=== PATIENT | female | born 1995 | race Caucasian/White ===

== ENCOUNTER → 2020-07-26 09:58 | Outpatient (CLI) | payer OTHER, SELFPAY ==
--- NOTE | ~2020-07-26 | US_ITS ---
EXAMINATION: US transvaginal EXAM DATE: 07/26/2020 10:19 INDICATION: Right lower quadrant pain. PCOS. TECHNIQUE: Pelvic transvaginal sonogram was performed. There are multiple grayscale and Doppler imag es available for interpretation. There is no prior study for comparison. FINDINGS: Uterus measures 7.4 x 2.9 x 3.5 cm, and is morphologically normal. Endometrial stripe jeana sures 7 mm, within normal limits. There is small free pelvic fluid. Right adnexa: The ovary measures 4.2 x 2.3 x 2.3 cm and is morphologically normal, with the dominant follicle measuring 1.8 cm. Ovarian vascular flow confirmed. Left adnexa: The ovary measures 3.0 x 2.4 x 2.0 cm and is morphologically normal. Ovarian vascular fl ow confirmed. IMPRESSION: 1. Unremarkable pelvic ultrasound exam. Reviewed, dictated and finalized at location A.
== END ==
PROVIDERS: Visit Provider Nurse Practitioner
DX: E28.2 Polycystic ovarian syndrome (principal); R10.2 Pelvic and perineal pain
CPT/HCPCS: 76830

== ENCOUNTER 2022-01-14 23:24 | Emergency (ER) | payer OTHER, SELFPAY ==
--- NOTE | ~2022-01-14 | XR_ITS ---
EXAMINATION: XR chest 1V portable DATE: 01/14/2022 23:55 INDICATION: Dyspnea and nausea. TECHNIQUE: frontal view of the chest was obtained. COMPARISON: None FINDINGS: The lungs are clear with no focal airspace opacities, pulmonary edema, pleural effusion or pneumothor ax. The cardiomediastinal silhouette is normal. IMPRESSION: 1. No acute cardiopulmonary disease. Reviewed, dictated and finalized at location A. CENTER MANAGER
--- NOTE | 2022-01-14 23:29 | ECG_ITS ---
Measurements Intervals [place] Rate: 87 P: 46 MA: 132 QRS: -4 QRSD: 106 T: 35 QT: 330 QTc: 398 Interpretive Statements SINUS RHYTHM DELAYED PRECORDIAL R/S TRANSITION BASELINE ARTIFACT- II, III, AVR, AVL, AVF, V3-V6 BORDERLINE ECG Electronically Signed On 01-15-2022 7:10:17 [employer] by Luis Felipe Stacy D.O.
[2022-01-14 23:37] VITALS: BP 161/98; PULSE 92; RESP 22; TEMP 36.7; O2SAT 97
--- NOTE | 2022-01-14 23:39 | ED.GENADULT ---
HPI - General Adult General Chief complaint: Recheck/Abnormal Lab/Rx Stated complaint: HTN, 4 DAYS POST Source: RN notes reviewed History of Present Illness HPI narrative: Patient presents emergency department via [facility] for hypertension the patient just gave 4 days ago at [facility] by Dr. Balderas on January 10. She had a at that time she states at that time she had preeclampsia and was on a magnesium drip following delivery she was switched and has been on nifedipine 30 mg daily which she took this morning states this evening she woke from a nap and felt hot and flushed she states she had a mild headache and mild vision changes she describes blurred vision that is now resolved she called EMS at that time and came to the ED for further evaluation she denies any chest pain shortness of breath abdominal pain nausea vomiting or any other symptoms Related Data Home Medications Medication Instructions Recorded Confirmed acetaminophen 500 mg PO PRN 01/14/22 ibuprofen 01/14/22 nifedipine PO 01/14/22 -wptg fum-folic ac-om3 01/14/22 Allergies Allergy/AdvReac Type Severity Reaction Status Date / Time No Known Allergies Allergy Verified 01/14/22 23:43 Review of Systems Review of Systems: Gen.: Denies fevers or chills Eyes: Reports blurred vision is now resolved ENT: Denies congestion Respiratory: Denies shortness of breath or cough CV: Denies chest pain or palpitations GI: Denies abdominal pain nausea, emesis or diarrhea ports recent delivery with Musculoskeletal: Denies back pain or muscle pain Neuro: Reports headache now resolved Skin: Denies rash Except as documented, all other systems reviewed and negative [facility] Past Medical History Medical History (Updated 01/15/22 @ 01:33 by Lamberto Hoffman DO) Preeclampsia Social History Social History (Updated 01/14/22 @ 23:43 by Lamberto Hoffman DO) Smoking status: Never smoker Exam Narrative: APPEARANCE: No acute distress, nontoxic, resting in bed EYES: EOMI, PERRL HEENT: Normocephalic, atraumatic, OMM RESPIRATORY: No respiratory distress Clear to auscultation bilaterally with no rhonchi wheezing or rales. CARDIOVASCULAR: Regular rate and rhythm without murmurs rubs or gallops. ABDOMINAL: Soft, nontender, nondistended, no rebound or guarding MUSCULOSKELETAl: Moves all extremities. No clubbing, cyanosis 2+ edema bilateral lower extremities NEURO: Awake and alert. Following commands, speech normal, no focal deficits SKIN:: Warm, dry. No rashes lesions or abrasions PSYCHIATRIC: Anxious in appearance Course Course Emergency Course: Patient has become more calm while in the ED I discussed with her possible anxiety medication but she is currently breast-feeding Called discussed with patient's [employer] Dr. Ramirez at [facility]. At this time reviewed vital signs and lab results feels the patient may be discharged home at this time. Request patient receive dose of Lasix prior to discharge Discussed with patient results of workup and diagnosis. Discussed need for follow-up with primary care, proper use of medication, and reasons to return to the emergency department. Patient understands and agrees to current treatment plan Vital Signs Vital signs: Vital Signs Temperature 98.0 F 01/14/22 23:37 Pulse Rate 92 01/14/22 23:37 Respiratory Rate 22 H 01/14/22 23:37 Blood Pressure 161/98 H 01/14/22 23:37 Pulse Oximetry 97 01/14/22 23:37 Temperature 98.0 F 01/14/22 23:37 Pulse Rate 86 01/15/22 01:25 Respiratory Rate 16 01/15/22 01:25 Blood Pressure 132/97 H 01/15/22 01:25 Pulse Oximetry 99 01/15/22 01:25 Medical Decision Making Vital Signs Vital Signs: Vital Signs Temperature 98.0 F 01/14/22 23:37 Pulse Rate 92 01/14/22 23:37 Respiratory Rate 22 H 01/14/22 23:37 Blood Pressure 161/98 H 01/14/22 23:37 Pulse Oximetry 97 01/14/22 23:37 Temperature
[2022-01-15 00:17] VITALS: BP 140/91; PULSE 88; RESP 19; O2SAT 98
[2022-01-15 00:21] LABS: Basophils Percent Auto 0.4 % (0.2-1.2); Eosinophils Absolute Auto 0.2 K/mm3 (0-0.3); Eosinophils Percent Auto 1.8 % (0-4.4); Hematocrit 27.1 % (37.0-47.0); Hemoglobin 8.6 g/dL (12.0-15.0); Immature Granulocyte Absolute 0.18 K/mm3 (0.00-0.031); Immature Granulocyte Percent A 1.9 % (0-0.5); Lymphocytes Absolute Auto 1.15 K/mm3 (0.9-3.2); Lymphocytes Percent Auto 12.3 % (18.3-44.2); Mean Corpuscular HGB Conc 31.7 g/dl (32-36); Mean Corpuscular Hemoglobin 29.3 pg (26-34); Mean Corpuscular Volume 92.2 fl (80-100); Mean Platelet Volume 9.8 fl (7.4-10.4); Monocytes Absolute Auto 0.6 K/mm3 (0.1-0.6); Monocytes Percent Auto 5.9 % (2.6-8.5); Neutrophils Absolute Auto 7.2 K/mm3 (1.3-6.7); Neutrophils Percent Auto 77.7 % (45.5-73.1); Platelet Count Result 230 k/mm3 (150-375); Red Blood Count 2.94 M/mm3 (4.2-5.4); Red Cell Distribution Width 13.6 % (11.5-14.5); White Blood Count 9.3 K/mm3 (4.5-10.0)
[2022-01-15 00:23] LABS: Alanine Aminotransferase 15 U/L (4-35); Albumin Level 3.4 g/dL (3.5-5.1); Alkaline Phosphatase 126 U/L (38-126); Anion Gap 6 mmol/L (8-16); Aspartate Amino Transferase 24 U/L (14-36); Bilirubin,Total 0.4 mg/dL (0.2-1.3); Blood Urea Nitrogen 9 mg/dL (7-17); Calcium 9.3 mg/dL (8.4-10.2); Carbon Dioxide 22 mmol/L (22-30); Chloride 108 mmol/L (98-107); Estimated CRCL calculation 162 ml/min; Estimated Glomerular Filt Rate > 60; Glucose 102 mg/dL (65-110); Lactate Dehydrogenase 471 U/L (313-618); Potassium 4.1 mmol/L (3.4-5.0); Sodium 136 mmol/L (137-145)
[2022-01-15 00:36] LABS: INR 0.9; Prothrombin Time 11.7 Seconds (11.1-14.7)
[2022-01-15 00:37] LABS: Partial Thromboplastin Time 38.2 SECONDS (22.3-36.8)
[2022-01-15 00:42] VITALS: BP 137/97; PULSE 86; RESP 18; O2SAT 99
[2022-01-15 00:50] VITALS: BP 127/87; PULSE 88; RESP 19; O2SAT 99
[2022-01-15] MEDS: FUROSEMIDE INJ 40 MG/4 ML VIAL 20 MG IV PUSH (01:01)
[2022-01-15 01:18] LABS: Add Urine Microscopic? YES; Appearance Urine Clear (Clear); Bacteria Urine Trace /hpf; Bilirubin Urine Negative (Negative); Blood Urine 2+ (Negative); Color Urine Yellow (Yellow); Glucose Urine UA Negative (Negative); Ketones Urine Negative (Negative); Leukocyte Esterase Ur Trace LEU/UL (Negative); Mucus Urine Rare /lpf; Nitrate Urine Negative (Negative); Protein Urine Negative (Negative); RBC Urine 0-2 /hpf (0-2); Specific Grav Ur 1.014 (1.001-1.035); Squamous Epithelial Cell Urine Few /hpf (Few); Urobilinogen Urine Negative mg/dL (<2.0)
[2022-01-15 01:25] VITALS: BP 132/97; PULSE 86; RESP 16; O2SAT 99
[2022-01-15 01:42] VITALS: BP 134/92; PULSE 92; RESP 19; O2SAT 98
[2022-01-15] MEDS: CEPHALEXIN 500 MG CAPSULE PO (01:42)
== END 2022-01-15 01:43 | disposition home or self-care (01) ==
PROVIDERS: Emergency Provider Emergency Medicine
DX: O16.5 Unspecified maternal hypertension, complicating the puerperium (principal); O86.20 Urinary tract infection following delivery, unspecified; N39.0 Urinary tract infection, site not specified; R94.31 Abnormal electrocardiogram [ECG] [EKG]
CPT/HCPCS: 36415; 71045; 80053; 81001; 83615; 85025; 85610; 85730; 87086; 93005; 96374; 99284; A9270; J1940